=== PATIENT | male | born 1950 | race Caucasian/White ===

== ENCOUNTER 2021-02-10 08:07 | Emergency (ER) | payer MEDICARE ==
[~2021-02-10 08:07] MED LIST: ATORVASTATIN CA20 MG PO; CIPRO500 MG PO; CYCLOBENZAPRINE10 MG PO; EFFEXOR XR150 MG PO; FLOMAX 0.4 MG0.4 MG PO; FLOMAX0.4 MG PO; GLUCOTROL10 MG PO; LIDOCAINE 5% P1 EACH TOP; LIPITOR20 MG PO; LOPRESSOR50 MG PO; NORCO 5-325 TA1 EACH PO; NORVASC2.5 MG PO; NORVASC5 MG PO; REMERON15 MG PO; TOPROL XL 50 MG50 MG PO; VITAMIN D50000 UNIT PO; VOLTAREN **OUT50 MG PO
[2021-02-10 09:34] LABS: BASOPHIL 0.7 % (0-2); EOSINOPHIL 1.2 % (0-7); HCT 43.3 % (42.0-52.0); HGB 14.7 g/dl (13.2-18.0); LYMPHOCYTE 14.2 % (15-48); MCH 30.6 pg (25.0-31.0); MCHC 33.9 g/dL (32.0-36.0); MONOCYTE 7.9 % (0-12); NEUTROPHIL 75.5 % (41-80); NRBC 0; PLT 185 K/uL (150-400); RBC 4.81 M/uL (4.70-6.00); RDW 12.3 % (11.5-14.0); WBC 10.3 K/uL (4.0-10.5)
[2021-02-10 09:47] LABS: ALBUMIN 3.7 g/dL (3.4-5.0); BILIRUBIN - TOTAL 0.9 mg/dL (0.2-1.0); BUN/CREAT RATIO (CALC) 13.8 RATIO; CREATININE 1.23 mg/dL (0.67-1.17); GLOBULIN (CALCULATION) 3.8 g/dL; POTASSIUM 5.8 mmol/L (3.5-5.1); TOTAL PROTEIN 7.5 g/dL (6.4-8.2)
[2021-02-10 11:44] LABS: BILIRUBIN NEGATIVE (NEGATIVE); BLOOD 3+ Ery/uL (NEGATIVE); CLARITY CLEAR (CLEAR); COLOR YELLOW (YELLOW); GLUCOSE (U) 2+ mg/dL (NORMAL); LEUKOCYTES NEGATIVE Leu/uL (NEGATIVE); NITRITE NEGATIVE (NEGATIVE); PROTEIN TRACE (LOW) mg/dL (NEGATIVE); SPECIFIC GRAVITY 1.025 (1.001-1.030); UROBILINOGEN 0.2 mg/dL (0.2-1.0)
[2021-02-10 11:54] LABS: BACTERIA TRACE; CALCIUM OXALATE CRYSTALS MODERATE; MUCOUS MODERATE; URINARY RBC 20-50
== END 2021-02-10 15:43 | disposition home or self-care (01) ==
LOC: FER 08:07
PROVIDERS: Emergency Medicine
DX: N13.2 Hydronephrosis with renal and ureteral calculous obstruction (principal); E87.5 Hyperkalemia; I10 Essential (primary) hypertension; E78.5 Hyperlipidemia, unspecified; E11.9 Type 2 diabetes mellitus without complications; Z88.0 Allergy status to penicillin; Z90.49 Acquired absence of other specified parts of digestive tract
CPT/HCPCS: 36415; 80053; 81001; 83690; 84132; 85025; J1885

== ENCOUNTER 2021-02-11 12:59 | Emergency (ER) | payer MEDICARE | END 2021-02-11 14:57 | disposition home or self-care (01) | LOC: FER 12:59 | DX: E87.5 Hyperkalemia (principal); I10 Essential (primary) hypertension; Z87.442 Personal history of urinary calculi; Z88.0 Allergy status to penicillin | CPT/HCPCS: 36415; 84132 ==